=== PATIENT | male | born 1970 | race Native Hawaiian/Other Pacific Islander ===

== ENCOUNTER 2020-11-21 07:57 | Emergency (ER) | payer OTHER ==
[2020-11-21 08:17] VITALS: BP 0/0
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
== END 2020-11-21 09:51 | disposition expired ==
LOC: ER FS 07:58 → EDBD 08:01 → ER FS 08:16
DX: S22.43XA Multiple fractures of ribs, bilateral, initial encounter for closed fracture (principal); S52.92XA Unspecified fracture of left forearm, initial encounter for closed fracture; I46.9 Cardiac arrest, cause unspecified; V23.4XXA Motorcycle driver injured in collision with car, pick-up truck or van in traffic accident, initial encounter
CPT/HCPCS: 31500; 36680